=== PATIENT | male | born 1980 | race Two or more races ===

== ENCOUNTER 2024-01-30 00:38 | Emergency (ER) | payer MEDICAID, SELFPAY ==
--- NOTE | ~2024-01-30 | XR_ITS ---
EXAMINATION: XR ELBOW, RIGHT CLINICAL INFORMATION: pain, no trauma COMPARISON: None available. TECHNIQUE: AP, lateral, and oblique views of the right elbow. FINDINGS: The bone mineralization is normal. The joint spaces are maintained. There is no evidence for fracture. There is no significant joint effusion. There is olecranon region soft tissue swelling. XR/XR elbow RT 2V IMPRESSION: Olecranon region soft tissue swelling. No fracture seen. Electronically signed by: Fadi Degroot MD 01/30/2024 01:57 AM REMI TERRAZAS
[2024-01-30 00:41] VITALS: BP 134/80; PULSE 74; RESP 16; TEMP 35.8; O2SAT 97; BMI 28.6
--- NOTE | 2024-01-30 01:57 | ED.EXTPRO ---
HPI - Extremity Problem General Chief complaint: Extremity Injury, Upper Stated complaint: elbow pain/inj Time Seen by Provider: 01/30/24 01:47 Source: patient Mode of arrival: ambulatory Limitations: no limitations History of Present Illness ED Provider: HPI Narrative: Patient noticed pain in the right elbow for last 2 weeks after twisting no fall no direct injury pain increases on twisting Related Data Previous Rx's ?Medication ?Instructions ?Recorded ibuprofen 600 mg tablet 600 mg PO Q6H PRN fever or pain 01/30/24 #30 tabs Allergies Allergy/AdvReac Type Severity Reaction Status Date / Time No Known Allergies Allergy Verified 01/30/24 00:41 Review of Systems Review of Systems: Yes all other systems are reviewed and are negative [facility] Social History Social History Advance Directives: No Advance Directives Information Provided: Yes Do you have a plan to hurt others: No Plan Physical Exam Vital Signs: Vital Signs: Last Vital Signs Temp 96.5 F L 01/30/24 00:41 Pulse 74 01/30/24 00:41 Resp 16 01/30/24 00:41 BP 134/80 01/30/24 00:41 Pulse Ox 97 01/30/24 00:41 O2 Del Method Room Air 01/30/24 00:41 BMI result Body Mass Index 28.6 Extrem: Shoulder/upper arm images: 1. Tenderness at lateral epicondyle area increases on accelerated rotation and local palpation neurovascular intact good range of movement Medical Decision Making Medical Decision Making MDM Narrative: Patient with clinically with tennis elbow advised to wear the elbow band, ibuprofen for pain Independent Interpretation I performed an independent interpretation of an: Plain X-Ray Interpretation: NAD Discharge Plan Discharge Clinical Impression: Right tennis elbow Patient Disposition: Home, Self-Care Instructions: Tennis Elbow (ED) Additional Instructions: Care as adv Avoid twisting movements of right hand as advised Wear elbow band for support Prescriptions: New ibuprofen 600 mg tablet 600 mg PO Q6H PRN (Reason: fever or pain) Qty: 30 0RF Print Language: [place]
[2024-01-30 02:08] VITALS: BP 134/80; PULSE 74; RESP 16; TEMP 35.8; O2SAT 97
== END 2024-01-30 02:08 | disposition home or self-care (01) ==
PROVIDERS: Emergency Provider Internal Medicine
DX: M77.11 Lateral epicondylitis, right elbow (principal); M25.521 Pain in right elbow
CPT/HCPCS: 73070; 99282; 99283